=== PATIENT | male | born 1945 | race Caucasian/White ===

== ENCOUNTER → 2017-03-02 | Outpatient (CLI) | payer MEDICARE, OTHER ==
--- NOTE | 2017-03-02 16:50 | RADRPT ---
PROCEDURE: XR Right hip and pelvis. CLINICAL INDICATION: Right hip pain and pelvic pain. TECHNIQUE: 3 views. Frontal pelvis. Frontal and lateral right hip. COMPARISON: None. FINDINGS: There is no fracture or dislocation. The soft tissues are normal. There are severe degenerative changes of the right hip with joint space narrowing, osteophytes, suba rticular sclerosis, subarticular cysts, and marked deformity. There are moderate degenerative ramos es of the left hip with joint space narrowing and osteophytes. There is no lytic or blastic lesion. The upper pelvis is not included on the images. IMPRESSION: 1. Severe degenerative changes of the right hip. 2. Moderate degenerative changes of the left hip. RPTAT: QQ .Sampson Robles MD, MD Date Time Electronically viewed and signed by .Sampson Robles MD, MD on 03/02/2017 16:50 .R/
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
== END | disposition home or self-care (01) ==
LOC: HKI 14:47
DX: M25.551 Pain in right hip (principal); M25.561 Pain in right knee; M25.562 Pain in left knee; M16.11 Unilateral primary osteoarthritis, right hip; M17.0 Bilateral primary osteoarthritis of knee; L03.116 Cellulitis of left lower limb; Z95.0 Presence of cardiac pacemaker
CPT/HCPCS: 73502; G0463